=== PATIENT | male | born 1950 | race Caucasian/White ===

== ENCOUNTER 2020-05-08 10:34 | Day surgery (SDC) | payer MEDICARE, OTHER, SELFPAY ==
[2020-05-08] VITALS (8 sets, daily range): BP systolic 97–161; BP diastolic 64–87; PULSE 61–83; RESP 14–16; TEMP 36.5–37.2; O2SAT 93–100; BMI 18.4
[2020-05-08] MEDS: Lactated Ringers 1,000 ML 75 ML IV ×2 (11:15→14:16)
[2020-05-08] MEDS: Cefazolin 2 GM in 0.9% Normal Saline 100 ML IV (12:37)
--- NOTE | 2020-05-08 12:38 | PCM.HP.STD ---
History of Present Illness Date of Admission: 05/08/20 Chief Complaint: Bladder stone BPH with obstruction The patient is a 70 year old male who presents to the office he has some mild voiding symptoms but on CAT scan was found to have a bladder stone so today were going proceed with laser lithotripsy and cystolitholapaxy of the bladder stone. Also do cystoscopy evaluate the prostate channel at this point he is been started on medical therapy for BPH Past Medical History Allergies No Known Allergies Allergy (Verified 05/06/20 08:28) Home Medications: Ambulatory Orders Medication Instructions Recorded Alfuzosin HCl [Alfuzosin HCl ER] 10 mg PO DAILY 05/06/20 Multivitamin [Multiple Vitamins] 1 ea PO DAILY 05/06/20 Surgical History: no surgical history Smoking Status: Never smoker Tobacco Use: Non-smoker Review of Systems Constitutional: Denies: Chills, Fever, Weight Change HEENT: Denies: Head Aches, Sinus Congestion, Sinus Drainage Cardiovascular: Denies: Chest Pain, Palpitations Respiratory: Denies: Cough, Shortness of breath at rest, Sputum production Gastrointestinal: Denies: Abdominal Pain, Nausea, Vomiting Genitourinary: Denies: Dysuria Musculoskeletal: Denies: Joint Pain, Joint Tenderness Skin: Denies: Rash, Wounds Neurological: Denies: Numbness, Tingling, Focal weakness Psychiatric: Denies: Anxiety, Depression, Homicidal Ideations, Suicidal Ideations Hematologic/ Lymphatic: Denies: Easy Bruising, Easy Bleeding VTE Information - Inpt Only VTE Present on Admission: No VTE Mechan Device Prophylaxis: SCD's - Physical Exam Vitals/I&O's: Vital Signs Temp Pulse Resp BP Pulse Ox 99 F 65 14 140/79 H 100 05/08/20 10:57 05/08/20 10:57 05/08/20 10:57 05/08/20 10:57 05/08/20 10:57 Oxygen Delivery Method Room Air Weight: 58.3 kg Body Mass Index (BMI) 18.4 General: Alert, Oriented x3, Cooperative HEENT: Atraumatic, PERRLA, EOMI, Normocephalic Neck: Supple, No JVD, Negative Carotid Bruits Lungs: Clear to auscultation, Normal air movement Cardiovascular: Regular rate, No murmurs Abdomen: Bowel Sounds Present, Soft, Non Tender Extremities: No edema, Capillary Refill Less than 3 Seconds Skin: No rashes, No breakdown Musculoskeletal: No Tenderness to Palpation of Joints or Extremities Neurological: Cranial nerves II-XII grossly intact Psych/Mental Status: Normal Affect, Appropriate Laboratory Results 05/07/20 12:30: COVID-19 ([facility]TER[facility]) Not Detected Current Medications Lactated Ringer's () 1,000 mls @ 75 mls/hr IV .[id number] [facility] Last Admin: 05/08/20 11:15 Dose: 75 mls/hr Documented by: Assessment/Plan 70-year-old male with bladder stone history of BPH with obstruction on medical therapy can proceed with laser of the bladder stone today.
--- NOTE | 2020-05-08 12:41 | DCINST_ITS ---
Discharge Diet: No Restrictions, Light diet - advance as tolerated Discharge Activity: Return to Normal Activity, May Not Drive - for 2 days. Additional Activity Instructions:: Please be aware that pain medications may cause nausea. You should typically eat light foods as you take your pain medication. Pain medication may cause constipation, if this is a problem for you, please discuss with your doctor. Allergies/Adverse Reactions: Allergies No Known Allergies Allergy (Verified 05/06/20 08:28) Medications to take at Discharge Alfuzosin HCl [Alfuzosin HCl ER] 10 mg PO DAILY 05/06/20 Multivitamin [Multiple Vitamins] 1 ea PO DAILY 05/06/20 Ciprofloxacin [Cipro] 500 mg PO BID #6 tab 05/08/20 The following prescriptions were given: Ciprofloxacin [Cipro] 500 mg PO BID #6 tab Transmission Status: Sent to [facility] Primary Care Physician: Reji Zavala DO [Primary Care Provider] - Test Results: Test results from this visit will be discussed in further detail at your follow- up appointment, if applicable. Please Follow Up With: Steven Avelar MD When: in 2 weeks, please call to make an appointment.
--- NOTE | 2020-05-08 13:07 | PCM.OPRPT ---
Report of Operation Date of Procedure: 05/08/20 Pre-Operative Diagnosis: Bladder stone 2 cm Post-Operative Diagnosis: Same Surgery/Procedure Performed:: Cystoscopy and cystolitholapaxy with a laser Description of Surgical Findings:: 70-year-old male was found to have a bladder stone presents today for laser removal of the bladder stone also diagnostic cystoscopy recently started on medical therapy for enlarged prostate. He claims to have minimal symptoms but is not emptying his bladder all the way and he has obstruction. Patient was taken back to the operating room after smooth induction of general anesthesia he was placed in dorsolithotomy position went in the bladder with a 21 [place] rigid cystourethroscope the entire length the urethra was normal the pendulous urethra was normal the sphincter was intact verumontanum was identified he had a very high riding bladder neck and a large median lobe bilateral high per trophy and obstruction inside the bladder identified a 2 cm stone, I then went back in with a 23 [place] rigid scope I then lasered the stone little tiny pieces using laser fiber after the stone was lasered completely we flushed out all the stones of the bladder and then once the bladder was removed of the stone then the bladder was drained I removed the cystoscope I think given the obstruction I probably can recommend also he consider a TURP. For now he will go home medical therapy and he will go home after he urinates. Type of Anesthesia:: General Drains: none - Admit VTE Documentation VTE Present on Admission: No VTE Mechan Device Prophylaxis: SCD's
--- NOTE | 2020-05-08 15:29 | SUR.PHASEII ---
pt bladder scanned for 535cc unable to void. dr sutton advised. pt to have bonds catheter placed and will be removed in 2 days.
== END 2020-05-08 16:22 | disposition home or self-care (01) ==
LOC: SDC 10:37 → AC 10:38
PROVIDERS: Anesthesiology; PCP Family Medicine; Referring Provider Urology; Visit Provider Urology
PROC: (CPT 52317; principal; 2020-05-08 12:40)
DX: N21.0 Calculus in bladder (principal); N40.1 Benign prostatic hyperplasia with lower urinary tract symptoms; N13.8 Other obstructive and reflux uropathy; Z11.59 Encounter for screening for other viral diseases
CPT/HCPCS: 52317; 87635; G2023; J7120; J2405; U0003

== ENCOUNTER → 2022-12-20 | Outpatient (CLI) | payer MEDICARE, OTHER, SELFPAY ==
[2022-12-20 13:18] LABS: Mucous, Urine 0 SEEN /hpf (<or=2+); Squamous Epithelial Cells - UA 0 SEEN /hpf (0-5)
[2022-12-20 13:54] LABS: Color, Urine Yellow (Yellow); Glucose, Dipstick Normal (Normal); Ketone-Dipstick Negative (Negative); Leukocyte Esterase-Dipstick 25 /ul (Negative); Nitrite-Dipstick Negative (Negative); Occult Blood-Urine 25 /ul (Negative); Protein-Dipstick 15 mg/dl (Negative); Specific Gravity, Urine 1.015 (1.002-1.030); Urine Bilirubin Dipstick Negative (Negative); Urine Clarity Clear (Clear); Urine Urobilinogen Normal (Normal); Urine pH 6.5 (5.0 - 8.0)
[2022-12-20 14:26] LABS: Bacteria RARE /hpf (None Seen); Red Blood Cells-Urine 0-5 SEEN /hpf (0-5); White Blood Cells 0-5 SEEN /hpf (0-5)
== END | disposition home or self-care (01) ==
PROVIDERS: PCP Family Medicine; Referring Provider Physician Assistant; Visit Provider Physician Assistant
DX: N39.0 Urinary tract infection, site not specified (principal); R30.0 Dysuria
CPT/HCPCS: 81001; 87086

== ENCOUNTER 2022-12-30 11:42 | Observation (INO) | payer MEDICARE, OTHER, SELFPAY ==
--- NOTE | 2022-12-29 07:22 | EKG12_ITS ---
Test Reason : PRE-OP Blood Pressure : / mmHG Vent. Rate : 097 BPM Atrial Rate : 097 BPM P-R Int : 146 ms QRS Dur : 072 ms QT Int : 352 ms P-R-T Axes : 087 062 081 degrees QTc Int : 447 ms Normal sinus rhythm Normal ECG Confirmed by DESHAUN BARBOZA, PEDRO ([id number]), production editor ISI GAR ([id number]) on 12/29/2022 2:00:21 PM Referred By: ZEENAT Confirmed By:PEDRO MEADE MD
[2022-12-30] VITALS (9 sets, daily range): BP systolic 116–144; BP diastolic 69–94; PULSE 72–83; RESP 16–18; TEMP 36.1–36.9; O2SAT 97–100; BMI 18.9
[2022-12-30] MEDS: Lactated Ringers 1,000 ML 15 ML IV (08:20)
[2022-12-30] MEDS: Cefazolin 2 GM in 0.9% Normal Saline 100 ML IV (10:30)
--- NOTE | 2022-12-30 10:35 | PROS_PTH ---
PATIENT: MERCY DOBSON LOC: MS3 U#:[id number] AGE/SX: 72/M ROOM: [facility] [place] RE12/30/[address]: Dr. Steven Avelar MD : [id number] BED: 1 DIS: 12/31/2022 SPEC #: [id number] RECD: 12/30/22 13:57 STATUS: SEGUNDO CHOJuan #: [id number] NIHARIKA: 12/30/22 10:[address]: Steven Avelar DEPT: SURGICAL PATHOLOGY RECD BY: Danna Fox ENTERED: 12/31/22 09:56 SP TYPE: TURP OTHR DR: Dr. Reji Zavala, DO Tissues: Prostate, NOS Procedures: Surgery Specimen Level IV HEADER OPERATION: Transurethral resection of prostate with Olympus PRE-OP DIAGNOSIS: BPH TISSUE SUBMITTED: Prostate chips MICROSCOPIC DIAGNOSIS Prostate chips, transurethral resection: Benign prostatic hyperplasia, glandular and stromal type. Acute and chronic inflammation. YANNI:maik 01/01/2023 MICROSCOPIC DESCRIPTION Slides are reviewed. GROSS DESCRIPTION Received is one container labeled with the patient's name and designated prostate chips. The specimen consists of multiple irregular fragments of pink-leija, rubbery, soft tissue that in aggregate weigh 18.8 gm and measure in aggregate 6 x 6 x 1 cm. [employer] portions are submitted in ten cassettes. / AM:maik 12/31/2022 TC:5 CPT: 06864
--- NOTE | 2022-12-30 11:42 | DCINST_ITS ---
Discharge Instructions Diet Discharge Diet: No restrictions, Light diet - advance as tolerated and Soft diet Activity Discharge Activity: Return to Normal Activity Follow Up Care Please Follow Up With: Steven Avelar MD When: Call for an appointment 2 weeks Test Results: Test results from this visit will be discussed in further detail at your follow- up appointment, if applicable. Discharge Plan Admission Primary Reason for Your Visit: turp Attending Provider: Steven Avelar Primary Care Provider: Reji Zavala Discharge Orders/Prescriptions Prescriptions: New ciprofloxacin HCl [Cipro] 500 mg tablet 500 mg PO BID Qty: 10 0RF Continued multivitamin 1 EACH tablet 1 ea PO DAILY ascorbic acid (vitamin C) [Vitamin C] 500 mg Tablet 500 mg PO DAILY Discontinued sulfamethoxazole-trimethoprim [Bactrim DS] 800-160 mg tablet 1 tab PO BID Qty: 20 0RF alfuzosin 10 MG tablet extended release 24 hr 10 mg PO DAILY Referrals / Follow Up: Reji Zavala DO [Primary Care Provider] - Steven Avelar MD [Med Staff - Active Staff] - Disposition Disposition (needs filled in before D/C Order can be placed): Home, Self Care
--- NOTE | 2022-12-30 11:42 | PCM.HP.STD ---
HPI - General HPI Narrative MERCY DOBSON, is a 72 M who presents for a TURP for large obstructive prostate PFSH Medical History Former smoker Hx of retinal detachment Kidney stones Wears glasses Home Medications multivitamin 1 ea PO DAILY 05/06/20 [History Last Taken 12/29/22] ascorbic acid (vitamin C) 500 mg tablet (Vitamin C) 500 mg PO DAILY 12/28/22 [History Last Taken 12/29/22] ciprofloxacin HCl 500 mg tablet (Cipro) 500 mg PO BID #10 tabs 12/30/22 [Rx Last Taken Unknown] Allergy/AdvReac Type Severity Reaction Status Date / Time No Known Allergies Allergy Verified 12/30/22 08:17 Surgical History Hx of bilateral cataract extraction Hx of cystoscopy Social History Smoking Status: Never smoker Vital Signs Vital Signs Vital Signs: 12/30/22 08:36 12/30/22 08:36 Temperature 97 F L Temperature Source Temporal Pulse Rate 78 Respiratory Rate 18 Respiratory Pattern Normal Blood Pressure 144/94 H Blood Pressure Mean 110 Blood Pressure Source Monitor Blood Pressure Position Semi-Fowlers Blood Pressure Location Right Arm Pulse Ox 97 Oxygen Delivery Method Room Air Weight Weight: 60 kg Body Mass Index (BMI) 18.9
--- NOTE | 2022-12-30 11:43 | PCM.OPRPT ---
Report of Operation Date of Procedure: 12/30/22 Pre-Operative Diagnosis: BPH with obstruction with a large median lobe Post-Operative Diagnosis: The same Surgery/Procedure Performed:: Transurethral resection of prostate Description of Surgical Findings:: Patient was taken back to the operating room after smooth induction of general anesthesia he was placed in dorsolithotomy position. The penis testicles were prepped and draped in usual sterile fashion went to the urethra with a 24 [place] continuous-flow resectoscope entire length the urethra was clear of any strictures or scar tissue the verumontanum was identified he had bilateral hypertrophy and a very large median lobe I first resected the median lobe until I got to the floor and worked my way back to the verumontanum I then resected the right lobe of the prostate resected the left lobe of the prostate create a nice wide open channel did a flow test and nice flow and then I carefully resected apical tissue and then use electrocautery and cauterized to control the bleeding had a nice wide open resection good flow of the sphincter was intact and then we placed three-way catheter into the bladder for continuous irrigation the resection took about 1 hour patient acetic was reversed and he was taken back to PACU in good condition. Surgeon: Steven Avelar Type of Anesthesia: General Drains: [address] Admit VTE Documentation VTE Present on Admission: No VTE Mechan Device Prophylaxis: SCD's VTE Pharm Prophylaxis ordered?: No
[2022-12-30] MEDS: 0.9% Normal Saline 1,000 ML 125 ML IV ×2 (15:01→23:15)
[2022-12-30] MEDS: levoFLOXacin IV 750 MG/150 ML BAG 100 MG IV (15:03)
[2022-12-30] MEDS: Docusate Sodium 100 MG Capsule 200 MG PO (20:39)
[2022-12-31 02:45] VITALS: BP 115/65; PULSE 71; RESP 18; TEMP 36.7; O2SAT 99
--- NOTE | 2022-12-31 06:05 | NURSING ---
CBI stopped @ 0600 per order
[2022-12-31] MEDS: 0.9% Normal Saline 1,000 ML 125 ML IV (06:51)
[2022-12-31] MEDS: Ascorbic Acid 500 MG Tablet PO (07:57)
[2022-12-31] MEDS: Docusate Sodium 100 MG Capsule 200 MG PO (07:57)
[2022-12-31] MEDS: Multivitamins,Therapeutic Tablet 1 TABLET PO (07:57)
[2022-12-31 08:00] VITALS: BP 124/72; PULSE 81; RESP 16; TEMP 36.8; O2SAT 99
[2022-12-31] MEDS: levoFLOXacin IV 750 MG/150 ML BAG 100 MG IV (09:38)
--- NOTE | 2022-12-31 11:05 | CASEMGMT ---
SEAN OLGUIN DC planning: Face to face with pt who i sitting up in the chair. Pt denies any concerns or needs at discharge. States his will be able to assist him if needed. Julia Kat RN CM
== END 2022-12-31 12:55 | disposition home or self-care (01) ==
LOC: SDC 12:04 → MS3 12:04
PROVIDERS: Admitting Provider Urology; PCP Family Medicine; Referring Provider Urology; Visit Provider Urology
PROC: (CPT 52601; principal; 2022-12-30 10:25)
DX: N40.1 Benign prostatic hyperplasia with lower urinary tract symptoms (principal); N13.8 Other obstructive and reflux uropathy; Z87.891 Personal history of nicotine dependence
CPT/HCPCS: 52601; 00914; 88305; 93005; 94668; 96361; 96365; 96366; 99221; 99252; J7030; J7120; G0378; G0463; J2405

== ENCOUNTER 2023-01-03 09:15 | Emergency (ER) | payer MEDICARE, OTHER, SELFPAY ==
[2023-01-03 09:16] VITALS: BP 148/93; PULSE 89; RESP 11; TEMP 36.6; O2SAT 99; BMI 19.3
--- NOTE | 2023-01-03 09:25 | CT_ITS ---
STUDY: CTA CHEST REASON FOR EXAM: Male, 72 years old. Chest pain, WITH TURP PROCEDURE 5 DAYS AGO RADIATION DOSAGE (If Supplied By Facility): CTDIvol = ( 5.63 ) mGy, DLP = ( 242.80 ) mGycm TECHNIQUE: The examination was performed with the intravenous administration of IV 100mL Isovue-370. Post-processing of the angiographic images was performed, with multiplanar reformation and 3D reconstruction. Individualized dose optimization techniques were used for this CT. COMPARISON: None. FINDINGS: Normal enhancement of the main pulmonary artery and right and left pulmonary arteries. Normal enhancement of the bilateral peripheral pulmonary arteries. There is no demonstrated pulmonary embolism. Normal thoracic aorta and visualized great vessels. There is no demonstrated aortic dissection. Normal heart and pericardium. There are no coronary artery calcifications. Normal mediastinum. Normal hilar regions. Normal visualized trachea and bronchi. The lungs are hyperinflated. There is minimal biapical scarring. Normal pulmonary parenchyma. Normal pleura. Normal chest wall structures. There are degenerative changes of the thoracic spine. There is a levoscoliosis of the thoracolumbar spine. The limited images of the upper abdomen demonstrate a nonobstructing 3.8 mm left renal calculus. CT/CTA Chest W/WO Contrast IMPRESSION: No demonstrated pulmonary embolism or arterial dissection. Hyperinflated lungs. Nonobstructing 3.8 mm left renal calculus. Electronically Signed: Radha Giordano MD at 10:25 EST ,
--- NOTE | 2023-01-03 09:26 | EKG12_ITS ---
Test Reason : CP Blood Pressure : / mmHG Vent. Rate : 087 BPM Atrial Rate : 087 BPM P-R Int : 152 ms QRS Dur : 062 ms QT Int : 352 ms P-R-T Axes : 085 064 078 degrees QTc Int : 423 ms Normal sinus rhythm Normal ECG Confirmed by DESHAUN BARBOZA, PEDRO ([id number]), assistant editor ISI GAR ([id number]) on 01/04/2023 11:43:20 AM Referred By: MC Confirmed By:PEDRO MEADE MD
--- NOTE | 2023-01-03 09:26 | ED.VIS.CHEST ---
HPI History of Present Illness Chief Complaint: Chest Pain Detail of Chief Complaint: Chest pain x2 days Informant: patient Narrative Narrative: Patient presents with chest discomfort started initially 2 days ago and was somewhat mild. Patient describes an achy discomfort over the left chest. Pain aggravated and certainly made worse by deep breath. He denies feeling short of breath. Patient tells me he had a TURP surgery on his prostate 5 days ago. Patient has no heart history. Patient does not have history of PE or DVT. Currently rates his pain a 3 out of 10. He denies recent illness such as cough or sore throat. He denies fevers. Prior Similar Symptoms: No PFSH PFSH Medical History (Updated 01/03/23 @ 11:[address] Karel Cordova, DO) Former smoker Hx of retinal detachment Kidney stones Wears glasses Home Medications multivitamin 1 ea PO DAILY 05/06/20 [History Last Taken 12/29/22] ascorbic acid (vitamin C) 500 mg tablet (Vitamin C) 500 mg PO DAILY 12/28/22 [History Last Taken 12/29/22] ciprofloxacin HCl 500 mg tablet (Cipro) 500 mg PO BID #10 tabs 12/30/22 [Rx Last Taken Unknown] Allergy/AdvReac Type Severity Reaction Status Date / Time No Known Allergies Allergy Verified 01/03/23 09:18 Surgical History Hx of bilateral cataract extraction Hx of cystoscopy Social History Smoking Status: Never smoker ROS ROS ED Review of Systems ROS Unobtainable: other Constitutional Constitutional ED: Reports lethargy; Denies chills, fever(s), sweats or weight loss Eyes Eyes: Denies blurry vision, change in vision or diplopia ENT ENT ED: Denies rhinorrhea or sore throat Cardiovascular Cardiovascular: Reports chest pain; Denies orthopnea or racing heartbeat Respiratory/Chest Respiratory/Chest: Denies cough, dyspnea, dyspnea on exertion, orthopnea or sputum Gastrointestinal Gastrointestinal: Denies abdominal pain, diarrhea, nausea or vomiting Genitourinary Genitourinary ED: Denies dysuria, hematuria or urinary frequency Musculoskeletal Musculoskeletal: Denies arthralgias, back pain, myalgias or neck pain Integumentary Denies abscess, Abrasions or rash Neurologic Neurologic: Denies headache(s) or weakness Psychiatric Psychiatric: Denies anxiety, depression or suicidal thoughts Endocrine Endocrinology: Denies polydipsia, polyphagia or polyuria Hematologic/Lymphatic Hematologic/Lymphatic: Denies easy bleeding, easy bruising or lymphadenopathy Allergic/Immunologic Allergic/Immunologic ED: Denies mouth swelling, tongue swelling or urticaria EXAM Physical Exam Const Vital Signs: 01/03/23 09:16 01/03/23 09:18 01/03/23 09:26 Temperature 97.9 F Temperature Source Oral Pulse Rate 89 Respiratory Rate 11 L Respiratory Effort Normal Non-Labored Blood Pressure 148/93 H Blood Pressure Mean 111 Pulse Ox 99 Oxygen Delivery Method Room Air Room Air Positive well nourished and well developed General Appearance ED: well developed and NAD HEENT Reports TM's clear and moist mucous membranes normocephalic and atraumatic; Negative for trauma or tenderness Tympanic Membrane ED: Yes TM's clear Eyes PERRL and EOMs intact bilaterally General Eye ED: Negative for pale conjunctiva or scleral icterus Neck no lymphadenopathy, supple and no JVD General: Negative for tenderness Chest Wall Chest Narrative: Tenderness to palpation over left anterior chest wall that somewhat seems to reproduce his pain. There is no ecchymosis or bruising. There is no subcutaneous emphysema. Chest: Negative for tenderness Resp normal respiratory effort and clear to auscultation bilaterally Effort and Inspection: Negative for respiratory distress or pain with movement Auscultation: Negative for rhonchi, wheezes or diminished lung sounds Cardio regular rate, regular rhythm, S1 normal heart sound, S2 normal heart sound and no murmurs Peripheral Pulses: pulses 2+ throughout GI normal to inspection, nondistended, normoactive bowel sounds, soft to palpation, non-tender, non-distended and no masses Back/Spine no CVA tenderness and no thoracic nor lumbar tenderness Extremity normal to inspection General Extremety ED: Negative for edema General Extremity: Negative for edema Neuro oriented x3, CN's II-XII intact bilaterally, no sensory deficits noted and gait normal Sensorium / Orientation: awake, alert, oriented to person, oriented to place and oriented to time Motor Exam: strength 5/5 throughout and strength abnormal Psych mental status grossly normal Skin no rashes or lesions noted and no wounds Heart Score History: Slightly/Non-Suspicious ECG: Normal Age: >/= 65 years Risk Factors: No Risk Factors Troponin: </= Normal Limit Score: 2 MDM MDM MDM Narrative Medical decision making narrative: RecentPatient with presentation of atypical chest pain for several days. It TURP surgery. Pain is pleuritic and there was concern for PE. Low suspicion for cardiac etiology. Patient does state that his father had an AK around the time of his current age. Patient had an EKG on arrival showed a sinus rhythm with a ventricular rate of 87 bpm with no acute ST segment changes. I did give patient aspirin. Lab work-up showed a normal white count and normal H&H and platelet count. Chemistries were unremarkable troponin was normal at 10. Patient had a CTA of the chest that was negative for PE or dissection. Patient heart score is a 2. Clinical suspicion is low for acute coronary syndrome. This point he is advised to use ibuprofen for discomfort. He is advised to return if exertional dyspnea, worsening pain, or condition should worsen anyway. Patient advised to follow-up with primary care physician within next 3 to 5 days. Lab Data Attestation: I reviewed the patient's lab results. Labs: Laboratory Results - last 24 hr 01/03/23 01/03/23 09:26 09:26 WBC 9.7 RBC 4.53 L Hgb 13.7 Hct 42.5 MCV 93.8 MCH 30.2 MCHC 32.2 RDW Std Deviation 44.3 H RDW Coeff of Lucia 12.7 Plt Count 386 MPV 10.1 Immature Gran % (Auto) 0.600 Neut % (Auto) 71.9 H Lymph % (Auto) 18.0 L Tillman % (Auto) 7.6 Eos % (Auto) 1.4 Baso % (Auto) 0.5 Absolute Neuts (auto) 7.0 Absolute Lymphs (auto) 1.74 Nucleated RBC % 0 Sodium 139 Potassium 3.9 Chloride 103 Carbon Dioxide 29.0 Anion Gap 7 BUN 19 H Creatinine 1.04 Estim Creat Clear Calc 57.21 Est GFR (MDRD) Af Amer 91 Est GFR (MDRD) Non-Af 75 BUN/Creatinine Ratio 18.3 Glucose 102 Calcium 9.4 Troponin I High Sens 10 Radiography Diagnostic Testing: Clinical Impression(s) from Imaging Studies Chest CTA 01/03/23 09:25 IMPRESSION: No demonstrated pulmonary embolism or arterial dissection. Hyperinflated lungs. Nonobstructing 3.8 mm left renal calculus. Electronically Signed: Radha Giordano MD at 10:25 EST , EKG Initial EKG: Attestation: I personally reviewed and interpreted this EKG as follows: Comments: Sinus rhythm with ventricular rate of 87 bpm with no acute ST segment changes Discharge Plan Triage Chief Complaint: Chest Pain ED Provider: Karel Cordova Dx/Rx/DC Orders Clinical Impression: Chest pain Instructions: ED Chest Pain, Uncertain Cause Prescriptions: No Action multivitamin 1 EACH tablet 1 ea PO DAILY ascorbic acid (vitamin C) [Vitamin C] 500 mg Tablet 500 mg PO DAILY ciprofloxacin HCl [Cipro] 500 mg tablet 500 mg PO BID Qty: 10 0RF Primary Care Provider: Reji Zavala Referrals: Reji Zavala DO [Primary Care Provider] - 3-5 Days Disposition Disposition: Home, Self Care
[2023-01-03 09:33] LABS: Absolute Lymphocyte Count 1.74 X10^3/uL (0.83-4.51); Basophil# 0.05 X10^3/uL; Basophil% 0.5 % (0-1); Eosinophil# 0.14 X10^3/uL; Eosinophils% 1.4 % (0-5); Hematocrit 42.5 % (40-54); Hemoglobin 13.7 g/dL (13.0-16.5); Lymphocyte # 1.74 X10^3/ul (0.83-4.51); Mean Corp Hgb Conc 32.2 g/dL (32-36); Mean Corpuscular Hgb 30.2 pg (27.0-32.0); Mean Corpuscular Volume 93.8 fL (80-94); Mean Platelet Vol. 10.1 fl (6.2-12.0); Monocyte# 0.74 X10^3/uL; Monocyte% 7.6 % (0-10); NRBC Flagged by Analyzer 0 % (0-5); Neutrophil # 6.95 X10^3/uL (2.7-7.7); Neutrophil % 71.9 % (47-70); Platelet Count 386 K/mm3 (150-450); RBC Distribution Width CV 12.7 % (11.6-14.6); RBC Distribution Width SD 44.3 fl (35.1-43.9); Red Blood Count 4.53 M/mm3 (4.6-6.2); White Blood Count 9.7 K/mm3 (4.4-11.0)
[2023-01-03] MEDS: Aspirin 81 MG TAB.CHEW 324 MG PO (09:34)
[2023-01-03] MEDS: 0.9% Normal Saline 1,000 ML 150 ML IV (09:35)
[2023-01-03 09:53] LABS: Anion Gap 7 (5-15); BUN 19 mg/dL (7-18); BUN/Creat Ratio 18.3 RATIO (10-20); Calcium,Total 9.4 mg/dL (8.5-10.1); Chloride 103 mmol/L (98-107); Creatinine, Serum 1.04 mg/dL (0.70-1.30); EST Glomerular Filtration Rate 75 mL/min (>60); Est Glom Filt Rate - Afr Amer 91 mL/min (>60); Estimated Creatinine Clearance 57.21 ml/min; Glucose 102 mg/dL (74-106); Potassium 3.9 mmol/L (3.5-5.1); Sodium Level 139 mmol/L (136-145); Troponin-I HS (w/2H Reflex) 10 pg/mL (3.0-78.0)
[2023-01-03 11:27] VITALS: BP 127/66; PULSE 78; RESP 16; O2SAT 98
[2023-01-03 11:29] LABS: Reflex Troponin-HS? (from REC) Y
== END 2023-01-03 11:31 | disposition home or self-care (01) ==
PROVIDERS: Emergency Provider Emergency Medicine; PCP Family Medicine; Visit Provider Emergency Medicine
DX: R07.9 Chest pain, unspecified (principal); Z87.891 Personal history of nicotine dependence
CPT/HCPCS: 71275; 80048; 84484; 85025; 93005; 99285; J7030; Q9967; A4216